=== PATIENT | female | born 1985 | race Caucasian/White ===

== ENCOUNTER 2019-09-03 14:31 | Emergency (ER) | payer SELFPAY ==
[2019-09-03] MEDS ORDERED: Sodium Chloride 0.9% 1,000 ML IV ONE (14:56)
[2019-09-03] MEDS ORDERED: Morphine 4 MG/ML Syringe IVPUSH ONE ×2 (14:57→16:25)
[2019-09-03] MEDS ORDERED: Ondansetron 4 MG/2 ML SDV IVPUSH ONE (14:58)
--- NOTE | 2019-09-03 15:05 | EDM.PDOC ---
ED HPI GENERAL MEDICAL PROBLEM - General Chief Complaint: Abdominal Pain Stated Complaint: ABDOMINAL PAIN Time Seen by Provider: 09/03/19 14:44 Source of Information: Reports: Patient History Limitations: Reports: No Limitations - History of Present Illness INITIAL COMMENTS - FREE TEXT/NARRATIVE: This 33 year old female is admitted to the ED with a chief complaint of right lower quad abdominal with pain into the right flank to back area. She states that the pain started at 9:00AM this morning first in the right back area and later moved to the RLQ. She complains of nausea and vomiting along with a poor appetite today. She has a history of kidney stones but states that this is different. She denies any urinary symptoms at time of evaluation. Onset: Sudden (9:00 AM this morning in the right back and now to the right lower quad.) Location: Reports: Abdomen (RLQ to the right flank.) Quality: Reports: Sharp, Stabbing Severity: Moderate Improves with: Reports: None Worsens with: Reports: Movement Associated Symptoms: Reports: Loss of Appetite, Nausea/Vomiting RLQ Pain Score (Numeric/FACES): 9 - Related Data Allergies Allergy/AdvReac Type Severity Reaction Status Date / Time clove Allergy Hives Verified 09/03/19 14:33 ketorolac [From Toradol] Allergy Hives Verified 09/03/19 14:33 prednisone Allergy Hives Verified 09/03/19 14:33 sumatriptan [From Imitrex] Allergy Hives Verified 09/03/19 14:33 Home Meds: Home Meds Ondansetron HCl [Zofran] 4 mg PO Q8HR PRN 5 Days #15 tablet 09/03/19 [Rx] oxyCODONE HCl/Acetaminophen [Percocet 5-325 mg Tablet] 1 each PO Q6HR PRN 4 Days #16 tablet 09/03/19 [Rx] ED ROS GENERAL - Review of Systems Review Of Systems: See Below Constitutional: Reports: Decreased Appetite HEENT: Reports: No Symptoms Respiratory: Reports: No Symptoms Cardiovascular: Reports: No Symptoms Endocrine: Reports: No Symptoms GI/Abdominal: Reports: No Symptoms : Reports: No Symptoms Musculoskeletal: Reports: No Symptoms Skin: Reports: No Symptoms Neurological: Reports: No Symptoms ED EXAM, GI/ABD - Physical Exam Exam: See Below Exam Limited By: No Limitations General Appearance: Alert, Moderate Distress (complaining of RLQ abdominal pain) Eyes: Bilateral: Normal Appearance, EOMI Ears: Normal External Exam, Normal Canal, Hearing Grossly Normal, Normal TMs Nose: Normal Inspection, Normal Mucosa, No Blood Throat/Mouth: Normal Inspection, Normal Lips, Normal Teeth, Normal Gums, Normal Oropharynx, Normal Voice, No Airway Compromise Head: Atraumatic, Normocephalic Neck: Normal Inspection, Supple, Non-Tender, Full Range of Motion Respiratory/Chest: No Respiratory Distress, Lungs Clear, Normal Breath Sounds, No Accessory Muscle Use, Chest Non-Tender Cardiovascular: Normal Peripheral Pulses, Regular Rate, Rhythm, No Edema, No Gallop, No JVD, No Murmur, No Rub GI/Abdominal Exam: Normal Bowel Sounds, Soft, No Abnormal Bruit, Guarding, Tender (RLQ). No: Rigid, Rebound, Mass (Female) Exam: Deferred Rectal (Female) Exam: Deferred (at this time) Back Exam: Normal Inspection, Full Range of Motion, CVA Tenderness (R) Extremities: Normal Inspection, Normal Range of Motion, Non-Tender, Normal Capillary Refill, No Pedal Edema Neurological: Alert, Oriented, CN II-XII Intact, Normal Cognition, Normal Reflexes Skin Exam: Warm, Dry, Intact, Normal Color, No Rash Lymphatic: No Adenopathy Course - Vital Signs Text/Narrative:: The patient was re-evaluated at 6:10 PM. She feels much better and that her pain score is 3/10. Her physical exam was greatly improved. Her abdomen is soft with minimal tenderness in the right lower quad. Very little right CVA tenderness. Her labs are unremarkable. Pending her ultrasound of the right kidney, she might well be discharged. The Ultrasound of the kidneys were reviewed. I have discussed this with the patient. She will be discharged and follow up with a urologist provided by our nurse. Last Recorded V/S: Last Vital Signs Temp 97.9 F 09/03/19 14:33 Pulse 79 09/03/19 16:39 Resp 18 09/03/19 16:39 BP 126/71 09/03/19 16:39 Pulse Ox 100 09/03/19 16:39 - Orders/Labs/Meds Labs: Laboratory Tests 09/03/19 09/03/19 09/03/19 Range/Units 14:35 14:35 14:35 WBC 9.78 (4.0-11.0) K/uL RBC 4.82 (4.30-5.90) M/uL Hgb 15.9 (12.0-16.0) g/dL Hct 46.4 H (36.0-46.0) % MCV 96.3 (80.0-98.0) fL MCH 33.0 H (27.0-32.0) pg MCHC 34.3 (31.0-37.0) g/dL RDW Std Deviation 47.6 (28.0-62.0) fl RDW Coeff of Lyn 13 (11.0-15.0) % Plt Count 303 (150-400) K/uL MPV 9.70 (7.40-12.00) fL Neut % (Auto) 70.1 (48.0-80.0) % Lymph % (Auto) 20.1 (16.0-40.0) % [place] % (Auto) 8.0 (0.0-15.0) % Eos % (Auto) 1.4 (0.0-7.0) % Baso % (Auto) 0.4 (0.0-1.5) % Neut # (Auto) 6.9 H (1.4-5.7) K/uL Lymph # (Auto) 2.0 (0.6-2.4) K/uL [place] # (Auto) 0.8 (0.0-0.8) K/uL Eos # (Auto) 0.1 (0.0-0.7) K/uL Baso # (Auto) 0.0 (0.0-0.1) K/uL Nucleated RBC % 0.0 /100WBC Nucleated RBCs # 0 K/uL Lactate 1.3 (0.20-2.00) mmol/L Sodium 139 (136-145) mmol/L Potassium 4.0 (3.5-5.1) mmol/L Chloride 104 (98-107) mmol/L Carbon Dioxide 23.8 (21.0-32.0) mmol/L BUN 13 (7.0-18.0) mg/dL Creatinine 1.0 (0.6-1.0) mg/dL Est Cr Clr Drug Dosing 77.08 mL/min Estimated GFR (MDRD) > 60.0 ml/min Glucose 116 H (74-106) mg/dL Calcium 9.7 (8.5-10.1) mg/dL Total Bilirubin 0.3 (0.2-1.0) mg/dL AST 27 (15-37) IU/L ALT 32 (14-63) IU/L Alkaline Phosphatase 92 (46-116) U/L Total Protein 7.6 (6.4-8.2) g/dL Albumin 4.0 (3.4-5.0) g/dL Globulin 3.6 (2.6-4.0) g/dL Albumin/Globulin Ratio 1.1 (0.9-1.6) Lipase 187 (73-393) U/L Urine Color Urine Appearance Urine pH (5.0-8.0) Ur Specific [place] (1.001-1.035) Urine Protein (NEGATIVE) mg/dL Urine Glucose (UA) (NEGATIVE) mg/dL Urine Ketones (NEGATIVE) mg/dL Urine Occult Blood (NEGATIVE) Urine Nitrite (NEGATIVE) Urine Bilirubin (NEGATIVE) Urine Urobilinogen (<2.0) EU/dL Ur Leukocyte Esterase (NEGATIVE) 09/03/19 Range/Units 15:20 WBC (4.0-11.0) K/uL RBC (4.30-5.90) M/uL Hgb (12.0-16.0) g/dL Hct (36.0-46.0) % MCV (80.0-98.0) fL MCH (27.0-32.0) pg MCHC (31.0-37.0) g/dL RDW Std Deviation (28.0-62.0) fl RDW Coeff of Lyn (11.0-15.0) % Plt Count (150-400) K/uL MPV (7.40-12.00) fL Neut % (Auto) (48.0-80.0) % Lymph % (Auto) (16.0-40.0) % [place] % (Auto) (0.0-15.0) % Eos % (Auto) (0.0-7.0) % Baso % (Auto) (0.0-1.5) % Neut # (Auto) (1.4-5.7) K/uL Lymph # (Auto) (0.6-2.4) K/uL [place] # (Auto) (0.0-0.8) K/uL Eos # (Auto) (0.0-0.7) K/uL Baso # (Auto) (0.0-0.1) K/uL Nucleated RBC % /100WBC Nucleated RBCs # K/uL Lactate (0.20-2.00) mmol/L Sodium (136-145) mmol/L Potassium (3.5-5.1) mmol/L Chloride (98-107) mmol/L Carbon Dioxide (21.0-32.0) mmol/L BUN (7.0-18.0) mg/dL Creatinine (0.6-1.0) mg/dL Est Cr Clr Drug Dosing mL/min Estimated GFR (MDRD) ml/min Glucose (74-106) mg/dL Calcium (8.5-10.1) mg/dL Total Bilirubin (0.2-1.0) mg/dL AST (15-37) IU/L ALT (14-63) IU/L Alkaline Phosphatase (46-116) U/L Total Protein (6.4-8.2) g/dL Albumin (3.4-5.0) g/dL Globulin (2.6-4.0) g/dL Albumin/Globulin Ratio (0.9-1.6) Lipase (73-393) U/L Urine Color YELLOW Urine Appearance CLEAR Urine pH 6.0 (5.0-8.0) Ur Specific [place] 1.010 (1.001-1.035) Urine Protein NEGATIVE (NEGATIVE) mg/dL Urine Glucose (UA) NEGATIVE (NEGATIVE) mg/dL Urine Ketones NEGATIVE (NEGATIVE) mg/dL Urine Occult Blood NEGATIVE (NEGATIVE) Urine Nitrite NEGATIVE (NEGATIVE) Urine Bilirubin NEGATIVE (NEGATIVE) Urine Urobilinogen 0.2 (<2.0) EU/dL Ur Leukocyte Esterase NEGATIVE (NEGATIVE) Meds: Medications Discontinued Medications Generic Name Dose Route Start Last Admin Trade Name Freq PRN Reason Stop Dose Admin Sodium Chloride 1,000 mls @ 1,000 mls/hr 09/03/19 14:56 09/03/19 15:05 Normal Saline IV 09/03/19 15:55 1,000 mls/hr .Bolus ONE Administration Iopamidol 90 ml 09/03/19 16:40 02/05/20 16:40 Isovue Multipack-370 (76%) IVPUSH 09/03/19 16:41 90 ml ONETIME STA Administration Morphine Sulfate 4 mg 09/03/19 14:57 09/03/19 15:05 Morphine IVPUSH 09/03/19 14:58 4 mg ONETIME ONE Administration Morphine Sulfate 4 mg 09/03/19 16:25 09/03/19 16:32 Morphine IVPUSH 09/03/19 16:26 4 mg ONETIME ONE Administration Ondansetron HCl 4 mg 09/03/19 14:58 09/03/19 15:05 Zofran IVPUSH 09/03/19 14:59 4 mg ONETIME ONE Administration Departure - Departure Time of Disposition: 18:52 Disposition: Home, Self-Care 01 Condition: Good Clinical Impression: Nonspecific abdominal pain, Right renal mass - Discharge Information *PRESCRIPTION DRUG MONITORING PROGRAM REVIEWED*: Yes *COPY OF PRESCRIPTION DRUG MONITORING REPORT IN PATIENT JOHN: Yes Referrals: PCP,None [Primary Care Provider] - Forms: ED Department Discharge Additional Instructions: Take all medications as directed. Follow up with your PCP in the next two to three days. Also, follow up with a Urologist for further evaluation of the mass on your right kidney. Drink plenty of clear liquids for the next 12-24 hours and advance your diet as tolerated. Rest for the next 24 hours. Return to the ED if your condition gets worse or should you have any questions or concerns. The following information is given to patients seen in the emergency department who are being discharged to home. This information is to outline your options for follow-up care. We provide all patients seen in our emergency department with a follow-up referral. The need for follow-up, as well as the timing and circumstances, are variable depending upon the specifics of your emergency department visit. If you don't have a primary care physician on staff, we will provide you with a referral. We always advise you to contact your personal physician following an emergency department visit to inform them of the circumstance of the visit and for follow-up with them and/or the need for any referrals to a consulting specialist. The emergency department will also refer you to a specialist when appropriate. This referral assures that you have the opportunity for follow-up care with a specialist. All of these measure are taken in an effort to provide you with optimal care, which includes your follow-up. Under all circumstances we always encourage you to contact your private physician who remains a resource for coordinating your care. When calling for follow-up care, please make the office aware that this follow-up is from your recent emergency room visit. If for any reason you are refused follow-up, please contact the [facility] Emergency Department at and asked to speak to the emergency department charge nurse. Sepsis Event Note - Evaluation Sepsis Screening Result: No Definite Risk - Focused Exam Vital Signs: Vital Signs Temp Pulse Resp BP Pulse Ox 09/03/19 16:39 79 18 126/71 100 09/03/19 16:23 81 16 147/88 H 95 09/03/19 15:16 96 145/109 H 95 09/03/19 14:33 97.9 F 108 H 18 159/103 H 96 Date Exam was Performed: 09/03/19 Time Exam was Performed: 18:50
[2019-09-03 15:16] LABS: BLOOD UREA NITROGEN,BUN 13 mg/dL (7.0-18.0); CARBON DIOXIDE,CO2 23.8 mmol/L (21.0-32.0); CHLORIDE,CL 104 mmol/L (98-107); GLUCOSE RANDOM 116 mg/dL (74-106); LIPASE 187 U/L (73-393); SODIUM,NA 139 mmol/L (136-145)
[2019-09-03] MEDS ORDERED: Iopamidol 755 MG/ML 500 ML Multipack Bottle IVPUSH STA (16:40)
--- NOTE | 2019-09-03 16:48 | CT ---
INDICATION: Abdominal pain. TECHNIQUE: CT abdomen and pelvis acquired with IV contrast. 90 mL IV Isovue 370. COMPARISON: None FINDINGS: Lower chest: Unremarkable. Liver: Unremarkable. Spleen: Unremarkable. Pancreas: Unremarkable. Gallbladder and bile ducts: Status post cholecystectomy. The common duct measures up to 10 mm which may be related to the cholecystectomy. No intrahepatic biliary ductal dilatation. Kidneys: There are hypoattenuating renal lesions bilaterally. The largest in the upper pole of the right kidney measures 1.6 cm and does not measure simple fluid (25 HU). Additional bilateral hypoattenuating lesions are too small to accurately characterize. No nephrolithiasis or hydronephrosis. Adrenal glands: Unremarkable. GI tract: Normal caliber small and large bowel without evidence of obstruction or inflammation. Appendix is normal. Vascular structures: There are few tiny atherosclerotic calcifications within the abdominal aorta. No sign of aneurysm. Lymph nodes: Unremarkable. Miscellaneous: No ascites. No free air. Small fat containing umbilical hernia. Pelvic Organs: Status post hysterectomy. Bones: No acute abnormality. No suspicious bone lesion. Mild degenerative changes affect the lower lumbar spine. IMPRESSION: 1. Status post cholecystectomy. Prominence of the common duct may be related to the cholecystectomy. There is no intrahepatic biliary ductal dilatation. 2. A 1.6 cm hypoattenuating right renal lesion does not meet criteria for a simple cyst. Further evaluation with renal ultrasound is recommended. Please note that all CT scans at this facility use dose modulation, iterative reconstruction, and/or weight-based dosing when appropriate to reduce radiation dose to as low as reasonably achievable. Dictated by Bharati Gallagher MD @ Sep 03 2019 4:37PM Signed by Dr. Bharati Gallagher @ Sep 03 2019 4:46PM
--- NOTE | 2019-09-03 18:29 | US ---
INDICATION: Right renal lesions seen on CT. TECHNIQUE: Ultrasound renal bilateral. Nath scale and color Doppler sonographic images were acquired of the kidneys and urinary bladder. COMPARISON: CT of the abdomen and pelvis 09/03/2019. FINDINGS: Right kidney: Measures measures 11.1 x 4.3 x 5.4 cm. Normal echotexture and cortex. There is a 1.5 cm lesion with both cystic and solid components. No vascularity is demonstrated. No hydronephrosis. Left kidney: Measures measures 11.1 x 4.9 x 4.7 cm. Normal echotexture and cortex. No masses, stones, or hydronephrosis. BLADDER: Normal in caliber and appearance. IMPRESSION: A 1.5 cm right renal lesion corresponds to the CT finding. It has a solid component and is indeterminate. Recommend urology consultation and consideration for dedicated contrast enhanced renal CT or MRI on a nonemergent basis. Dictated by Bharati Gallagher MD @ Sep 03 2019 6:15PM Signed by Dr. Bharati Gallagher @ Sep 03 2019 6:27PM
== END 2019-09-03 19:15 | disposition home or self-care (01) ==
LOC: MW.ED 14:31
DX: N28.89 Other specified disorders of kidney and ureter (principal)
CPT/HCPCS: 36415; 74177; 76770; 80053; 81003; 83605; 83690; 85025; 96361; 96374; 96375; 96376; 99284; J2270; J2405; J7030; Q9967

== ENCOUNTER 2019-09-10 15:53 | Emergency (ER) | payer SELFPAY ==
[2019-09-10] MEDS ORDERED: LORazepam 2 MG/ML SDV IVPUSH ONE (16:02)
[2019-09-10] MEDS ORDERED: Sodium Chloride 0.9% 1,000 ML IV ONE (16:02)
--- NOTE | 2019-09-10 16:06 | EDM.PDOC ---
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 Patient reports that she has had panic attacks in the past but does not feel that this is similar to her previous experience. She denies any increased stressors. Patient denies any fever, chills, headache , change in vision, syncope or near syncope. Denies any back pain, neck pain/ stiffness, or cough. Denies any abdominal pain, nausea, vomiting, diarrhea, constipation or dysuria. Has not noted any blood in urine or stool. Patient has been eating and drinking appropriately. Denies any alcohol or drug abuse. Review of systems: As per history of present illness and below otherwise all systems reviewed and negative. Past medical history: As per history of present illness and as reviewed below otherwise noncontributory. Surgical history: As per history of present illness and as reviewed below otherwise noncontributory. Social history: See social history for further information Family history: As per history of present illness and as reviewed below otherwise noncontributory. Physical exam: General: Well-developed and well-nourished 33-year-old female. Alert and oriented. Nontoxic-appearing, anxious and tearful although in no acute distress. Her vital signs are stable and have been reviewed by me. HEENT: Atraumatic, normocephalic, pupils equal and reactive bilaterally, negative for conjunctival pallor or scleral icterus, mucous membranes moist, TMs normal bilaterally, throat clear, neck supple, nontender, trachea midline. No drooling or trismus noted. No meningeal signs. No hot potato voice noted. Lungs: Clear to auscultation, breath sounds equal bilaterally, chest nontender. Heart: S1S2, regular rate and rhythm without overt murmur Abdomen: Soft, nondistended, nontender. Negative for masses or hepatosplenomegaly. Negative for costovertebral tenderness. Skin: Intact, warm, dry. No lesions or rashes noted. Extremities: Atraumatic, moves all extremities per self without difficulty or deficits, negative for cords or calf pain. Neurovascular unremarkable. Neuro: Awake, alert, oriented. Cranial nerves II through XII unremarkable. Cerebellum unremarkable. Motor and sensory unremarkable throughout. Exam nonfocal. Notes: Lab work is unremarkable. Patient's symptoms have improved after the IV Ativan. Patient does have a ride home. Encouraged her to follow-up with her primary care provider. Supportive care measures were reviewed and discussed. Voices understanding and is agreeable to plan of care. Denies any further questions or concerns at this time. Diagnostics: CBC, CMP, TSH, EKG Therapeutics: IV fluids, Ativan Prescription: None Impression: Chest pain, nonspecific Plan: 1. Today's lab work, EKG, and CXR are unremarkable. 2. Tylenol and/or Ibuprofen as needed as discussed. 3. Follow up with food operations manager as we discussed. Return to the ED as needed as discussed. Definitive disposition and diagnosis as appropriate pending reevaluation and review of above. Back Pain Score (Numeric/FACES): 5 - Related Data Allergies Allergy/AdvReac Type Severity Reaction Status Date / Time clove Allergy Hives Verified 09/10/19 16:01 ketorolac [From Toradol] Allergy Hives Verified 09/10/19 16:01 prednisone Allergy Hives Verified 09/10/19 16:01 sumatriptan [From Imitrex] Allergy Hives Verified 09/10/19 16:01 Home Meds: Home Meds Ondansetron HCl [Zofran] 4 mg PO Q8HR PRN 5 Days #15 tablet 09/03/19 [Rx] oxyCODONE HCl/Acetaminophen [Percocet 5-325 mg Tablet] 1 each PO Q6HR PRN 4 Days #16 tablet 09/03/19 [Rx] ED ROS GENERAL - Review of Systems Review Of Systems: Comprehensive ROS is negative, except as noted in HPI. ED EXAM, GENERAL - Physical Exam Exam: See Below (See dictation) Course - Vital Signs Last Recorded V/S: Last Vital Signs Temp 97.6 F 09/10/19 16:03 Pulse 79 09/10/19 16:03 Resp 25 H 09/10/19 16:03 BP 148/93 H 09/10/19 16:03 Pulse Ox 98 09/10/19 16:03 - Orders/Labs/Meds Orders: Active Orders 24 hr Category Date Time Status EKG Documentation Completion [RC] STAT Care 09/10/19 16:02 Active Sodium Chloride 0.9% [Normal Saline] 1,000 ml Med 09/10/19 16:02 Active IV STAT Medication Orders Sodium Chloride (Normal Saline) 1,000 mls @ 999 mls/hr IV STAT ONE Stop: 09/10/19 17:02 Last Admin: 09/10/19 16:15 Dose: 999 mls/hr Labs: Laboratory Tests 09/10/19 09/10/19 09/10/19 Range/Units 16:08 16:08 16:08 WBC 9.50 (4.0-11.0) K/uL RBC 4.79 (4.30-5.90) M/uL Hgb 16.0 (12.0-16.0) g/dL Hct 46.4 H (36.0-46.0) % MCV 96.9 (80.0-98.0) fL MCH 33.4 H (27.0-32.0) pg MCHC 34.5 (31.0-37.0) g/dL RDW Std Deviation 49.3 (28.0-62.0) fl RDW Coeff of Lyn 14 (11.0-15.0) % Plt Count 285 (150-400) K/uL MPV 9.50 (7.40-12.00) fL Neut % (Auto) 72.6 (48.0-80.0) % Lymph % (Auto) 18.6 (16.0-40.0) % [place] % (Auto) 8.0 (0.0-15.0) % Eos % (Auto) 0.3 (0.0-7.0) % Baso % (Auto) 0.5 (0.0-1.5) % Neut # (Auto) 6.9 H (1.4-5.7) K/uL Lymph # (Auto) 1.8 (0.6-2.4) K/uL [place] # (Auto) 0.8 (0.0-0.8) K/uL Eos # (Auto) 0.0 (0.0-0.7) K/uL Baso # (Auto) 0.1 (0.0-0.1) K/uL Nucleated RBC % 0.0 /100WBC Nucleated RBCs # 0 K/uL D-Dimer, Quantitative 0.45 (0.0-0.50) mg/L FEU Sodium 140 (136-145) mmol/L Potassium 3.6 (3.5-5.1) mmol/L Chloride 104 (98-107) mmol/L Carbon Dioxide 25.7 (21.0-32.0) mmol/L BUN 13 (7.0-18.0) mg/dL Creatinine 0.9 (0.6-1.0) mg/dL Est Cr Clr Drug Dosing 85.65 mL/min Estimated GFR (MDRD) > 60.0 ml/min Glucose 101 (74-106) mg/dL Calcium 9.5 (8.5-10.1) mg/dL Total Bilirubin 0.4 (0.2-1.0) mg/dL AST 22 (15-37) IU/L ALT 48 (14-63) IU/L Alkaline Phosphatase 91 (46-116) U/L Total Protein 8.0 (6.4-8.2) g/dL Albumin 4.2 (3.4-5.0) g/dL Globulin 3.8 (2.6-4.0) g/dL Albumin/Globulin Ratio 1.1 (0.9-1.6) TSH 3rd Generation 0.47 (0.36-3.74) uIU/mL Meds: Medications Generic Name Dose Route Start Last Admin Trade Name Freq PRN Reason Stop Dose Admin Sodium Chloride 1,000 mls @ 999 mls/hr 09/10/19 16:02 09/10/19 16:15 Normal Saline IV 09/10/19 17:02 999 mls/hr STAT ONE Administration Discontinued Medications Generic Name Dose Route Start Last Admin Trade Name Freq PRN Reason Stop Dose Admin Lorazepam 1 mg 09/10/19 16:02 09/10/19 16:16 Ativan IVPUSH 09/10/19 16:03 1 mg ONETIME ONE Administration Departure - Departure Time of Disposition: 16:50 Disposition: Home, Self-Care 01 Clinical Impression: Nonspecific chest pain - Discharge Information Instructions: Nonspecific Chest Pain Referrals: PCP,None [Primary Care Provider] - Forms: ED Department Discharge Additional Instructions: The following information is given to patients seen in the emergency department who are being discharged to home. This information is to outline your options for follow-up care. We provide all patients seen in our emergency department with a follow-up referral. The need for follow-up, as well as the timing and circumstances, are variable depending upon the specifics of your emergency department visit. If you don't have a primary care physician on staff, we will provide you with a referral. We always advise you to contact your personal physician following an emergency department visit to inform them of the circumstance of the visit and for follow-up with them and/or the need for any referrals to a consulting specialist. The emergency department will also refer you to a specialist when appropriate. This referral assures that you have the opportunity for follow-up care with a specialist. All of these measure are taken in an effort to provide you with optimal care, which includes your follow-up. Under all circumstances we always encourage you to contact your private physician who remains a resource for coordinating your care. When calling for follow-up care, please make the office aware that this follow-up is from your recent emergency room visit. If for any reason you are refused follow-up, please contact the [facility] Emergency Department at and asked to speak to the emergency department charge nurse. [facility] [address] [place] [id number] [address] [address] 1. Today's lab work, EKG, and CXR are unremarkable. 2. Tylenol and/or Ibuprofen as needed as discussed. 3. Follow up with food operations manager as we discussed. Return to the ED as needed as discussed. Sepsis Event Note - Focused Exam Vital Signs: Vital Signs Temp Pulse Resp BP Pulse Ox 09/10/19 16:03 97.6 F 79 25 H 148/93 H 98 Date Exam was Performed: 09/10/19 Time Exam was Performed: 16:58 - My Orders Last 24 Hours: My Active Orders 09/10/19 16:02 EKG Documentation Completion [RC] STAT Sodium Chloride 0.9% [Normal Saline] 1,000 ml IV STAT - Assessment/Plan Last 24 Hours: My Active Orders 09/10/19 16:02 EKG Documentation Completion [RC] STAT Sodium Chloride 0.9% [Normal Saline] 1,000 ml IV STAT
--- NOTE | 2019-09-10 16:35 | CR ---
Chest: Frontal view of the chest was obtained. Comparison: No previous chest x-ray. Heart size and mediastinum are normal. Lungs are clear. Bony structures are unremarkable. Impression: 1. Nothing acute is seen on frontal chest x-ray. Diagnostic code #1 This report was dictated in [place] Standard Time
[2019-09-10 16:54] LABS: BLOOD UREA NITROGEN,BUN 13 mg/dL (7.0-18.0); CARBON DIOXIDE,CO2 25.7 mmol/L (21.0-32.0); CHLORIDE,CL 104 mmol/L (98-107); GLUCOSE RANDOM 101 mg/dL (74-106); POTASSIUM,K 3.6 mmol/L (3.5-5.1); SODIUM,NA 140 mmol/L (136-145)
== END 2019-09-10 17:20 | disposition home or self-care (01) ==
LOC: MW.ED 15:53 → EDBD 15:53 → MW.ED 17:20
DX: R07.9 Chest pain, unspecified (principal); R06.02 Shortness of breath; Z88.6 Allergy status to analgesic agent; Z88.8 Allergy status to other drugs, medicaments and biological substances
CPT/HCPCS: 36415; 71045; 80053; 84443; 85025; 85379; 87804; 96361; 96374; 99285; J2060; J7030